=== PATIENT | female | born 1985 | race Caucasian/White ===

== ENCOUNTER 2018-05-25 21:08 | Emergency (ER) | payer OTHER ==
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
[2018-05-26 02:55] VITALS: BP 118/61
== END 2018-05-26 02:58 | disposition home or self-care (01) ==
LOC: ED 21:08
DX: O9A.211 Injury, poisoning and certain other consequences of external causes complicating pregnancy, first trimester (principal); M54.5 Low back pain; R10.9 Unspecified abdominal pain; Z3A.13 13 weeks gestation of pregnancy
CPT/HCPCS: 36415; 76801; 76817; 84702; 86900; 86901